=== PATIENT | male | born 2000 | race Caucasian/White ===

== ENCOUNTER 2021-03-23 04:31 | Emergency (ER) | payer OTHER, MEDICAID ==
[~2021-03-23] VITALS: Ht 180.3 cm; Wt 62.6 kg
[2021-03-23] MEDS ORDERED: PREDNISONE50 MG PO (06:14)
[2021-03-23] MEDS ORDERED: VENTOLIN HFA 1818 GM INH (06:14)
[2021-03-23] MEDS ORDERED: TORADOL 10 MG T10 MG PO (06:14)
[2021-03-23 06:35] VITALS: BP 124/70
== END 2021-03-23 06:35 | disposition home or self-care (01) ==
LOC: M.ERS 04:31
DX: J98.01 Acute bronchospasm (principal); B97.89 Other viral agents as the cause of diseases classified elsewhere; Z20.822 Contact with and (suspected) exposure to COVID-19; R09.1 Pleurisy